=== PATIENT | female | born 1985 | race African-American/Black ===

== ENCOUNTER 2019-10-09 13:07 | Emergency (ER) | payer OTHER ==
[~2019-10-09] VITALS: Ht 172.7 cm; Wt 72.6 kg
[2019-10-09 13:29] VITALS: BP 121/80
--- NOTE | 2019-10-09 13:33 | NUR ---
ED Nurse Note: Patient walked into ED from home c/o neck, chest, and right arm pain. Patient states ceiling fell down on her chest at 3AM this morning. Patient lives in an aparmtnent. Denies SOB. PA at bedside
[2019-10-09] MEDS ORDERED: Ketorolac 30mg Inj IM ONE (14:00)
--- NOTE | 2019-10-09 15:59 | Emergency Room Report ---
History of Present Illness General Chief Complaint: Multiple Trauma/Fall Source: Patient (Alex Mcmillan) Present Illness Allergies: Coded Allergies: No Known Allergies (Unverified , 10/09/19) Patient History Last Menstrual Period: 09/20/19 Now: No (Alex Mcmillan) Nursing Documentation-[facility] Past Medical History: No Stated History (Alex Mcmillan) Physical Exam Vital Signs Date Time Temp Pulse Resp B/P (MAP) Pulse Ox O2 Delivery O2 Flow Rate FiO2 10/09/19 13:12 98.1 77 17 121/80 (94) 98 Room Air (Alex Mcmillan) Medical Decision Making Diagnostic Impression: Primary Impression: Cervical strain Qualified Codes: S16.1XXA - Strain of muscle, fascia and tendon at neck level , initial encounter Additional Impression: Chest wall contusion Qualified Codes: S20.211A - Contusion of right front wall of thorax, initial encounter ER Course Please see above note. History obtained and patient examined by me. I agree with evaluation and treatment plan. Patient improved with treatment. (Dick Cat MD) Other X-Ray Diagnostic Results Other X-Ray Diagnostic Results #1: Electronically Signed by: P A documentation of Xray reviewed by me and is accurate, Dick Cat MD Other X-Ray Diagnostic Results #2: Electronically Signed by: P A documentation of Xray reviewed by me and is accurate, Dick Cat MD (Dick Cat MD) Last Vital Signs Date Time Temp Pulse Resp B/P (MAP) Pulse Ox O2 Delivery O2 Flow Rate FiO2 10/09/19 13:29 98.1 77 17 121/80 98 Room Air (Alex Mcmillan) Last Vital Signs Date Time Temp Pulse Resp B/P (MAP) Pulse Ox O2 Delivery O2 Flow Rate FiO2 10/09/19 16:32 98.2 78 17 122/78 98 Room Air Status: improved (Dick Cat MD) Disposition: HOME, SELF-CARE Condition: Stable Scripts Lidocaine Patch* (Lidoderm Patch*) 1 Each Adh..patch 1 PATCH TOPIC DAILY, #7 PATCH 0 Refills Patch(es) may remain in place for up to 12 hours in any 24-hour period. Prov: Alex Mcmillan 10/09/19 Methocarbamol* (ROBAXIN-500*) 500 Mg Tablet 500 MG ORAL TID PRN for For Pain, #15 TAB 0 Refills Prov: Alex Mcmillan 10/09/19 Ibuprofen (Ibu) 800 Mg Tablet 800 MG PO TID, #30 TAB Prov: Alex Mcmillan 10/09/19 Referrals: [facility],REFERR[facility] (PCP) Patient Instructions: Cervical Strain and Sprain With Rehab-SportsMed, Chest Contusion, [id number] Additional Instructions: Take medication as directed, follow-up with your primary care provider, if worsening symptoms return to the emergency room Alex Mcmillan Oct 09, 2019 15:58 Dick Cat MD Oct 09, 2019 21:49
[2019-10-09] MEDS ORDERED: LIDODERM700 M1 TOPIC (16:01)
[2019-10-09] MEDS ORDERED: ROBAXIN-500MG ORAL (16:01)
[2019-10-09] MEDS ORDERED: IBU800 MG PO (16:01)
--- NOTE | 2019-10-09 16:15 | NUR ---
ER DISCHARGE NOTE: Patient is cleared to be discharged per ERMD, pt is aox4, on room air, with stable vital signs. pt was given dc and prescription instructions, pt was able to verbalize understanding, pt id band removed without complications. pt is able to ambulate with steady gait. pt took all belongings.
[2019-10-09 16:32] VITALS: BP 122/78
--- NOTE | 2019-10-09 16:41 | Diagnostic Imaging Report ---
Indication: Pain, status post trauma Technique: One view of the chest, 2 views of the bilateral ribs Comparison: none Findings: No acute rib fracture demonstrated. No pneumothorax. Lungs and pleural spaces are clear. Heart size is normal Impression: No acute bony trauma
--- NOTE | 2019-10-09 16:51 | Diagnostic Imaging Report ---
Indication: Pain, status post trauma Technique: 3 views of the cervical spine Comparison: none Findings: Bony alignment is normal. No prevertebral soft tissue swelling. No acute fractures. No dislocations. The disc spaces are preserved. Impression: Negative
== END 2019-10-09 16:15 | disposition home or self-care (01) ==
LOC: EMR 15:20
DX: S16.1XXA Strain of muscle, fascia and tendon at neck level, initial encounter (principal); S20.211A Contusion of right front wall of thorax, initial encounter; X58.XXXA Exposure to other specified factors, initial encounter; Y92.9 Unspecified place or not applicable
CPT/HCPCS: 71111; 72040; 96372; J1885; J2405; Z7502; 99284

== ENCOUNTER 2019-12-11 17:51 | Emergency (ER) | payer OTHER ==
[~2019-12-11] VITALS: Ht 172.7 cm; Wt 77.1 kg
[~2019-12-11 17:51] MED LIST: IBU800 MG PO; LIDODERM700 M1 TOPIC; ROBAXIN-500MG ORAL
[2019-12-11 18:41] VITALS: BP 126/88
--- NOTE | 2019-12-11 18:41 | NUR ---
ED Nurse Note: pt ambulated to ed c/o right sided toothache pt states she had no dental appointments or teeth injury
[2019-12-11 19:00] VITALS: BP 126/88
--- NOTE | 2019-12-11 19:00 | NUR ---
ER DISCHARGE NOTE: Patient is cleared to be discharged per ERMD, pt is aox4, on room air, with stable vital signs. pt was given dc and prescription instructions, pt was able to verbalize understanding, pt id band removed. pt is able to ambulate with steady gait. pt took all belongings.
[2019-12-11] MEDS ORDERED: IBUPROFEN600 MG ORAL (19:02)
[2019-12-11] MEDS ORDERED: AMOXICILLIN500 MG ORAL (19:02)
--- NOTE | 2019-12-11 19:10 | Emergency Room Report ---
History of Present Illness General Chief Complaint: Toothache Source: Patient Present Illness HPI 34-year-old female presents with right upper tooth pain for 1 month. She reports 1 month ago she was biting something hard and the tooth broke. She has been having pain intermittently since. Patient has taken ibuprofen 600 mg which helps a lot. Denies any fever or other symptoms. Patient last saw dentist 1 year ago has not been able to see one yet for this. Allergies: Coded Allergies: No Known Allergies (Unverified , 10/09/19) Patient History Past Medical History: see triage record Last Menstrual Period: last month Now: No Reviewed Nursing Documentation: PMH: Agreed; PSxH: Agreed Nursing Documentation-PMH Past Medical History: No Stated History Review of Systems All Other Systems: negative except mentioned in HPI Physical Exam Vital Signs Date Time Temp Pulse Resp B/P (MAP) Pulse Ox O2 Delivery O2 Flow Rate FiO2 12/11/19 18:18 98.2 18 126/88 (101) 99 Room Air 12/11/19 18:41 79 Sp02 EP Interpretation: reviewed, normal General Appearance: normal inspection, well appearing, no apparent distress ENT: other - Tooth #2 and #3 mildly broken, no tenderness to gums or teeth, no dental abscess, no bleeding or pus. Respiratory: lungs clear, normal breath sounds Cardiovascular #1: regular rate, rhythm Medical Decision Making PA Attestation Dr. Grant is my supervising physician whom patient management and care has been discussed with. Diagnostic Impression: Primary Impression: Toothache ER Course Pt. presents to the ED c/o tooth pain for 1 month after breaking a tooth while eating. Ddx considered but are not limited to dental abscess, gingivitis, dental caries. Vital signs: are WNL, pt. is afebrile H&PE are most consistent with unspecified tooth pain. ORDERS: none required at this time, the diagnosis is clinical ED INTERVENTIONS: None required at this time. DISCHARGE: At this time pt. is stable for d/c to home. No evidence of dental abscess. Will provide printed patient care instructions, and prescription for Amoxicillin for infection prophylaxis and Ibuprofen for pain. Advised to follow up with dentist. Care plan and follow up instructions have been discussed with the patient prior to discharge. Last Vital Signs Date Time Temp Pulse Resp B/P (MAP) Pulse Ox O2 Delivery O2 Flow Rate FiO2 12/11/19 18:41 98.2 79 18 126/88 99 Room Air Disposition: HOME, SELF-CARE Condition: Stable Scripts Amoxicillin* (AMOXIL*) 500 Mg Capsule 500 MG ORAL EVERY 8 HOURS for 10 Days, #30 CAP Prov: Mariaelena Demarco 12/11/19 Ibuprofen* (MOTRIN*) 600 Mg Tablet 600 MG ORAL Q6H PRN for For Pain, #30 TAB Prov: Mariaelena Demarco PElvira 12/11/19 Patient Instructions: Dental Pain Additional Instructions: Take medications as directed. Follow up with a dentist. Follow up with a Primary Care Provider in 3-5 days, even if your symptoms have resolved. --Please review list of primary care clinics, if you do not already have a primary care provider Return sooner to ED if new symptoms occur, or current symptoms become worse. - Please note that this Emergency Department Report was dictated using [employer] worker technology software, occasionally this can lead to erroneous entry secondary to interpretation by the dictation equipment. Mariaelena Demarco Dec 11, 2019 19:10
== END 2019-12-11 19:00 | disposition home or self-care (01) ==
LOC: EMR 19:00
DX: K08.89 Other specified disorders of teeth and supporting structures (principal)
CPT/HCPCS: 99282